=== PATIENT | female | born 1950 | race Caucasian/White ===

== ENCOUNTER 2022-03-05 14:05 | Emergency (ER) | payer OTHER ==
[2022-03-05] MEDS ORDERED: NORCO 5-325 TA1 EACH PO (17:31)
== END 2022-03-05 17:53 | disposition home or self-care (01) ==
LOC: FER 14:05
DX: S51.812A Laceration without foreign body of left forearm, initial encounter (principal); S50.11XA Contusion of right forearm, initial encounter; Z23 Encounter for immunization; W22.8XXA Striking against or struck by other objects, initial encounter; Y92.009 Unspecified place in unspecified non-institutional (private) residence as the place of occurrence of the external cause
CPT/HCPCS: 90471; 90715

== ENCOUNTER 2022-05-21 14:52 | Emergency (ER) | payer OTHER ==
[~2022-05-21 14:52] MED LIST: NORCO 5-325 TA1 EACH PO
[2022-05-21 15:53] LABS: BASOPHIL 0.5 % (0-2); EOSINOPHIL 0.1 % (0-7); HCT 39.6 % (37.0-47.0); HGB 12.6 g/dl (12.5-16.0); LYMPHOCYTE 11.8 % (15-48); MCH 28.7 pg (25.0-31.0); MCHC 31.8 g/dL (32.0-36.0); MCV 90.2 fL (78.0-100.0); MONOCYTE 12.2 % (0-12); NEUTROPHIL 75.2 % (41-80); NRBC 0; PLT 189 K/uL (150-400); RBC 4.39 M/uL (4.20-5.40); RDW 14.1 % (11.5-14.0)
[2022-05-21 16:09] LABS: BUN/CREAT RATIO (CALC) 21.4 RATIO; CREATININE 1.12 mg/dL (0.51-0.95); POTASSIUM 3.8 mmol/L (3.5-5.1)
[2022-05-21] MEDS ORDERED: PAXLOVID 150-11 EACH PO (16:33)
[2022-05-21] MEDS ORDERED: PREDNISONE 20MG20 MG PO (16:34)
== END 2022-05-21 16:50 | disposition home or self-care (01) ==
LOC: FER 14:52
PROVIDERS: Nurse Practitioner Family
DX: U07.1 COVID-19 (principal); I10 Essential (primary) hypertension; Z88.6 Allergy status to analgesic agent; Z28.311 Partially vaccinated for COVID-19
CPT/HCPCS: 36415; 71045; 80048; 85025; 94640; 94664; J1100; J7030